=== PATIENT | male | born 1965 | race Caucasian/White ===

== ENCOUNTER 2021-09-28 16:58 | Emergency (ER) | payer MEDICARE, OTHER ==
[~2021-09-28] VITALS: Ht 170.2 cm; Wt 91.8 kg
[2021-09-28] MEDS ORDERED: LISI-893 PO (17:11)
[2021-09-28] MEDS ORDERED: METF-1211 PO (17:11)
[2021-09-28] MEDS ORDERED: ATOR10TA84 PO (17:11)
[2021-09-28] MEDS ORDERED: IBUPROFEN 600 MG TABLET PO ONE (19:30)
[2021-09-28] MEDS ORDERED: METF-1185 PO (19:30)
[2021-09-28] MEDS ORDERED: DULA0.75 SQ (19:30)
[2021-09-28] MEDS ORDERED: LISI-658 PO (19:30)
[2021-09-28] MEDS ORDERED: ACETAMINOPHEN/CODEINE 300-30 MG TABLET PO ONE (19:30)
[2021-09-28] MEDS ORDERED: CHOL500013 PO (19:30)
[2021-09-28] MEDS ORDERED: ACET-2080 PO (19:32)
[2021-09-28] MEDS ORDERED: IBUP-1554 PO (19:32)
[2021-09-28 20:04] VITALS: BP 131/78
== END 2021-09-28 20:12 | disposition home or self-care (01) ==
LOC: EMS 17:11
DX: M25.521 Pain in right elbow (principal); E11.9 Type 2 diabetes mellitus without complications; E78.00 Pure hypercholesterolemia, unspecified; I10 Essential (primary) hypertension
CPT/HCPCS: 82962; 99284